=== PATIENT | female | born 1985 | race Caucasian/White ===

== ENCOUNTER 2019-05-13 10:06 | Day surgery (SDC) | payer OTHER ==
[~2019-05-13] VITALS: Ht 154.9 cm; Wt 68.0 kg
[2019-05-13] VITALS (12 sets, daily range): BP systolic 100–122; BP diastolic 58–69; PULSE 80–100; RESP 14–24; Ht 154.9 cm; Wt 68.0 kg
[~2019-05-13 10:06] MED LIST: CEFAZOLIN 2 GM/50 ML (PMX) 50 ML IVPB ONE; SOD CHLORIDE 0.9% 1,000 ML IV SCH
[2019-05-13] MEDS ORDERED: LIDOCAINE 1% (MPF) 30 ML INJ ONE (12:57)
[2019-05-13] MEDS ORDERED: BUPIVACAINE 0.5%/EPI (SDV) 10 ML INJ ONE (12:57)
[2019-05-13] MEDS ORDERED: FENTAnyl 50 MCG/ML VIAL ONE ×2 (13:41→14:18)
[2019-05-13] MEDS ORDERED: CEFAZOLIN 1 GM INJ ONE (13:41)
[2019-05-13] MEDS ORDERED: PROPOFOL 20 ML ONE (13:41)
[2019-05-13] MEDS ORDERED: LIDOCAINE 100 MG SYRINGE ONE (13:41)
[2019-05-13] MEDS ORDERED: MIDAZOLAM 1 MG/ML 2 ML INJ ONE (13:42)
[2019-05-13] MEDS ORDERED: DEXAMETHASONE 4 MG/ML 5 ML INJ ONE (13:42)
[2019-05-13] MEDS ORDERED: ONDANSETRON 4 MG INJ ONE (13:42)
[2019-05-13] MEDS ORDERED: SUGAMMADEX SODIUM 200 MG/2 ML VIAL IV ONE (13:42)
[2019-05-13] MEDS ORDERED: BUPIVACAINE 0.25%/EPI (SDV) 10 ML INJ ONE (13:57)
[2019-05-13] MEDS ORDERED: HYDROGEN PEROXIDE 118 ML ONE (14:36)
[2019-05-13] MEDS ORDERED: FENTAnyl 50 MCG/ML VIAL IV PRN ×2 (15:00)
[2019-05-13] MEDS ORDERED: MEPERIDINE 25 MG INJ IV PRN (15:00)
[2019-05-13] MEDS ORDERED: ONDANSETRON 4 MG INJ IV PRN ×2 (15:00→15:30)
[2019-05-13] MEDS ORDERED: HYDROmorphONE 1 MG/5 ML IV SYRINGE IV PRN ×2 (15:00)
[2019-05-13] MEDS ORDERED: METOCLOPRAMIDE 10 MG INJ IV PRN (15:00)
[2019-05-13] MEDS ORDERED: LABETALOL HCL 20MG INJ IV PRN (15:00)
[2019-05-13] MEDS ORDERED: hydrALAzine 20 MG INJ IV PRN (15:00)
[2019-05-13] MEDS ORDERED: LACTATED RINGER'S 1,000 ML IV SCH (15:29)
[2019-05-13] MEDS ORDERED: HYDROCODONE/APAP (5/325) TAB PO PRN ×2 (15:30)
[2019-05-13] MEDS ORDERED: morphine 2 MG INJ IV PRN (15:30)
== END 2019-05-13 16:45 | disposition home or self-care (01) ==
LOC: SDS 10:06
DX: L72.0 Epidermal cyst (principal)
CPT/HCPCS: 80053; 85025; 85610; 85730; 88307; J0690; J1100; J2001; J2250; J2405; J3010